=== PATIENT | female | born 1940 | race Caucasian/White ===

== ENCOUNTER → 2019-06-27 | Outpatient (CLI) | payer OTHER, MEDICARE ==
[~2019-06-27] VITALS: Ht 172.7 cm; Wt 77.1 kg
[~2019-06-27] MED LIST: ACETAMINOPHEN325 M1 PO; ADULT LOW DOSE81 MG PO; ARICEPT10 M1 PO; AZO CRANBERRY1 EACH PO; CALCIUM +D & M1 EACH PO; CENTRUM TABLET1 TAB PO; CIPRO500 MG PO; COUMADIN 2 MG TA2 M1 PO; COUMADIN 5 MG TA5 M1 PO; FISHOIL; FLAGYL500 MG PO; GLUCOSAMINE-CH1 EA33 PO; HYDROXYCHLOROQ200 M1 PO; IBUPROFEN 200200 M1 PO; LISINOPRIL-HCT1 EAC2 PO; LISINOPRIL2.5 MG PO; NORCO 5-325 TA1 EACH PO; NORVASC5 M1 PO; PERCOCET 10-321 EACH PO; PLAQUENIL200 MG PO; PREDNISONE50 MG PO; PROBIOTIC1 EAC7 PO; RISPERDAL0.5 MG PO; SENNA8.8 MG/5 M PO; SINGULAIR 10 MG10 MG PO; TOPROL XL25 MG PO; TRAMADOL 50 MG50 MG PO; ZESTORETIC 20-1 EAC1 PO
[2019-06-27 09:58] VITALS: BP 116/62
[2019-06-27 10:33] VITALS: BP 116/62
[2019-06-27 10:56] LABS: HEMATOCRIT 38.8 % (37.0-47.0); MCH 31.6 pg (26.0-34.0); MCHC 33.4 g/dL (28.0-37.0); MCV 94.5 fL (80.0-100.0); RBC 4.1 mil/uL (4.20-5.00); RDW 13.4 % (10.5-14.5); WBC 6.2 thou/uL (4.0-11.0)
--- NOTE | 2019-07-15 22:05 | CATHLAB ---
[facility] [address] [place] [address] INVASIVE PROCEDURE REPORT Name: LENY VERAS TAMMY Room #: REG Germaine [facility].#: [id number] Admission: 06/27/19 Attend Phys: Dennis Laura MD Discharge: Date of : 38 Report #: [id number] THIS REPORT FOR: cc: Mani Zuniga MD, Kirk D. MD Lammoglia, Francisco J. MD ~ APPROVED REPORT Study performed: 06/27/2019 15:07:30 Patient Status: Out-Patient Room #: Event Personnel: MD Navneet Mansfield RN Shelly Click, CVT, Monitor Mike Grant, ARRT, RDCS, Scrub Exam: Generator Change for a Dual Chamber Permanent Pacemaker Indications: permanent pacer at [facility] The patient is a 78 year-old male with a history of SSS. Implanted Devices: Medtronic; Device type: PPM-D; Model #ABDIRIZAK S DR SEPIDEH Mariee [id number]; SN: [id number]; Expiration Date: 10/06/2020 Explanted Devices: Medtronic; Model # Adapta S ADDRS1; SN: [id number] Procedure The patient underwent informed consent. We discussed the details of the procedure including the risks, which include, but not limited to bleeding, infection, vascular damage, cardiac perforation, and pneumothorax. She understood these risks and was willing to proceed. As such, she was brought to the EP/Cardiac Catheterization laboratory in a fasting and sedated state and prepped and draped in a The patient underwent conscious sedation, with no related complications. The patient was brought to the EP/Cardiac Catheterization laboratory and the left chest and shoulder were prepped and draped in a sterile manner. The right subclavian region was infiltrated with 2% Lidocaine subcutaneous anesthesia. A transverse incision was made in the left upper chest cavity. The ventricular lead was interrogated and as was the atriial lead [facility] [place] [address] INVASIVE PROCEDURE REPORT Name: MEREDITH VERASMIYA MUNOZ Room #: REG CL [facility]#: [id number] Admission: 06/27/19 Attend Phys: Dennis Laura Discharge: Date of : 38 Report #: [id number] Electrode Parameters P Wave: N/A R Wave: 1.0mV Atrial Threshold: 0.7V @ 0.4ms Ventricular Threshold: 0.7V@0.4ms Atrial Resistance: 549 Ohms Ventricular Resistance: 437 Ohms Generator Change The generator change was then secured using 2.0 ethibond sutures. The subcutaneous pocket was irrigated with vancomycin antibiotic solution.The lead was attached to the appropriate receptacle on the new pulse generator and setscrews firmly tightened to insure adequate contact and stability. The lead and pulse generator were placed into the subcutaneous pocket. Sharp and sponge counts were confirmed to be correct. At this time the pocket was closed subcutaneously with a 2-0 nonabsorbable suture with a running/locking stitch and the skin was closed with a 3.0 Vicryl in a subcuticular stitch. The operative site was dressed in sterile fashion with sterri strips,4x4, op site and the patient was transferred to the floor in stable condition. Complications The patient tolerated the procedure well and there were no complications associated with the procedure. Findings Estimated Blood Loss: 10 cc Conclusion 1. successful generator change Recommendations 1. routine post pulse generator change protocol <ELECTRONICALLY SIGNED> By: Xavier Steinberg MD 07/15/192203 03 03 Xavier Steinberg MD /INF
== END | disposition home or self-care (01) ==
LOC: CATH 06-25 10:02
PROVIDERS: Internal Medicine
DX: Z45.010 Encounter for checking and testing of cardiac pacemaker pulse generator [battery] (principal); I49.5 Sick sinus syndrome; I42.9 Cardiomyopathy, unspecified; I10 Essential (primary) hypertension; E11.9 Type 2 diabetes mellitus without complications; J45.909 Unspecified asthma, uncomplicated; M19.90 Unspecified osteoarthritis, unspecified site; Z98.890 Other specified postprocedural states; Z79.899 Other long term (current) drug therapy; Z79.4 Long term (current) use of insulin; Z90.49 Acquired absence of other specified parts of digestive tract; Z90.710 Acquired absence of both cervix and uterus; Z96.651 Presence of right artificial knee joint; Z91.041 Radiographic dye allergy status; Z88.0 Allergy status to penicillin; Z88.2 Allergy status to sulfonamides